=== PATIENT | female | born 1995 | race Caucasian/White ===

== ENCOUNTER 2018-03-22 22:06 | Emergency (ER) | payer OTHER ==
[~2018-03-22] VITALS: Ht 165.1 cm; Wt 83.9 kg
[~2018-03-22 22:06] MED LIST: AMOX500 PO; Amoxicillin875 MG PO; Bactrim Ds Tab1 EACH PO; CEPH500 PO; CODACE30 PO; CRUTCH4 USE; HYDACE5 PO; IBUP800 PO; Keflex500 MG PO; ONDA4ODT PO; PRED20 PO; PROM25 PO; TRAM50 PO; Tamiflu75 MG PO
[2018-03-22] MEDS ORDERED: CEPH500 PO (23:44)
[2018-03-23] MEDS ORDERED: Bactrim Ds Tab1 EACH PO (00:13)
[2018-03-23] MEDS ORDERED: Percocet 5-3251 EACH PO (00:13)
== END 2018-03-23 00:17 | disposition home or self-care (01) ==
LOC: ER 22:06
DX: L03.316 Cellulitis of umbilicus (principal)
CPT/HCPCS: 99283

== ENCOUNTER 2018-10-21 17:49 | Emergency (ER) | payer OTHER ==
[~2018-10-21] VITALS: Ht 165.1 cm; Wt 83.9 kg
[~2018-10-21 17:49] MED LIST changes: +Percocet 5-3251 EACH PO
== END 2018-10-21 19:30 | disposition home or self-care (01) ==
LOC: ER 17:49
DX: S00.03XA Contusion of scalp, initial encounter (principal); F17.210 Nicotine dependence, cigarettes, uncomplicated; W18.30XA Fall on same level, unspecified, initial encounter; Y92.000 Kitchen of unspecified non-institutional (private) residence as the place of occurrence of the external cause
CPT/HCPCS: 99282

== ENCOUNTER 2019-03-13 23:35 | Emergency (ER) | payer OTHER ==
[~2019-03-13] VITALS: Ht 165.1 cm; Wt 83.9 kg
[2019-03-14] MEDS ORDERED: Bactrim Ds Tab1 EACH PO (04:20)
== END 2019-03-14 04:55 | disposition home or self-care (01) ==
LOC: ER 23:35
DX: L02.416 Cutaneous abscess of left lower limb (principal); L03.116 Cellulitis of left lower limb; F17.210 Nicotine dependence, cigarettes, uncomplicated
CPT/HCPCS: 10061; 90471; 90714; 99283-25

== ENCOUNTER 2019-08-23 20:35 | Emergency (ER) | payer OTHER ==
[~2019-08-23] VITALS: Ht 165.1 cm; Wt 81.7 kg
[2019-08-23] MEDS ORDERED: HYDR1TAB94 PO (23:05)
[2019-08-23] MEDS ORDERED: IBU800 MG PO (23:05)
[2019-08-23] MEDS ORDERED: Monodox100 MG PO (23:05)
== END 2019-08-23 23:24 | disposition home or self-care (01) ==
LOC: ER 20:35
DX: L03.311 Cellulitis of abdominal wall (principal); F17.210 Nicotine dependence, cigarettes, uncomplicated
CPT/HCPCS: 74176; 99283-25; A9270

== ENCOUNTER 2022-11-19 19:38 | Emergency (ER) | payer OTHER ==
[~2022-11-19] VITALS: Ht 165.1 cm; Wt 81.7 kg
[~2022-11-19 19:38] MED LIST changes: +HYDR1TAB94 PO; +IBU800 MG PO; +IBUP600 PO; +Monodox100 MG PO; +Norco 5-325 Ta1 EACH PO; +Veetids 500500 MG PO
== END 2022-11-19 21:28 | disposition home or self-care (01) ==
LOC: ER 19:38
DX: S13.4XXA Sprain of ligaments of cervical spine, initial encounter (principal); S40.011A Contusion of right shoulder, initial encounter; F17.210 Nicotine dependence, cigarettes, uncomplicated; V89.2XXA Person injured in unspecified motor-vehicle accident, traffic, initial encounter
CPT/HCPCS: 73030

== ENCOUNTER 2023-05-01 09:43 | Emergency (ER) | payer OTHER ==
[~2023-05-01] VITALS: Ht 160 cm; Wt 68.0 kg
[2023-05-01 11:39] LABS: Source, Urine Clean Catch
[2023-05-01 11:42] LABS: Appearance, Urine Clear (Clear); Bilirubin, Urine Neg (Neg); Blood, Urine 2+ (Neg); Color, Urine Yellow (P-Yellow); Glucose Qualitative, Urine Neg (Neg); Ketones, Urine Neg (Neg); Leukocyte Esterase, Urine 2+ (Neg); Nitrite, Urine Pos (Neg); Protein, Urine 1+ (Neg); Specific Gravity, Urine 1.015 (1.003-1.022); Urobilinogen, Urine 2+ (Normal)
[2023-05-01 11:49] LABS: Mucus Mod (0-Heavy)
[2023-05-01 11:50] LABS: Amorphous Light (0-Heavy); Bacteria Few /hpf; Calcium Oxalate Crystals Mod /hpf; Squamous Epithelial Cells Few /hpf (Few)
[2023-05-01 12:30] VITALS: BP 124/77
[2023-05-01] MEDS ORDERED: SUBOXONE 8 MG-1 EACH SL (12:33)
== END 2023-05-01 12:54 | disposition home or self-care (01) ==
LOC: ER 09:43
PROVIDERS: Physician Assistant
DX: F11.93 Opioid use, unspecified with withdrawal (principal); F15.93 Other stimulant use, unspecified with withdrawal; F17.210 Nicotine dependence, cigarettes, uncomplicated
CPT/HCPCS: 81001; 87077; 87086; 87186; 99284; A9270

== ENCOUNTER 2023-06-04 11:49 | Emergency (ER) | payer OTHER ==
[~2023-06-04] VITALS: Ht 165.1 cm; Wt 72.6 kg
[~2023-06-04 11:49] MED LIST changes: +SUBOXONE 8 MG-1 EACH SL
[2023-06-04 12:09] VITALS: BP 148/86
[2023-06-04] MEDS ORDERED: IBUP800 PO (12:12)
[2023-06-04] MEDS ORDERED: Amoxicillin500 MG PO (12:12)
== END 2023-06-04 12:14 | disposition home or self-care (01) ==
LOC: ER 11:49
DX: K04.7 Periapical abscess without sinus (principal); Z79.899 Other long term (current) drug therapy; F17.210 Nicotine dependence, cigarettes, uncomplicated
CPT/HCPCS: 99282

== ENCOUNTER 2023-08-10 19:28 | Emergency (ER) | payer OTHER ==
[~2023-08-10] VITALS: Ht 165.1 cm; Wt 69.7 kg
[~2023-08-10 19:28] MED LIST changes: +Amoxicillin500 MG PO
[2023-08-10 20:14] LABS: Source, Urine Voided
[2023-08-10 20:18] LABS: BASOPHILS ABSOLUTE AUTO 0.06 K/mm3 (0.00-0.23); BASOPHILS PERCENT AUTO 0 % (0-2); EOSINOPHILS ABSOLUTE AUTO 0.25 K/mm3 (0.00-0.68); EOSINOPHILS PERCENT AUTO 2 % (0-6); Hematocrit 44.1 % (33.0-51.0); Hemoglobin 14.2 g/dL (11.5-16.0); IMMATURE GRAN ABSOLUTE AUTO 0.06 K/mm3 (0.00-0.10); IMMATURE GRAN PERCENT AUTO 0 % (0-1); LYMPHOCYTES ABSOLUTE AUTO 5.89 K/mm3 (0.84-5.20); LYMPHOCYTES PERCENT AUTO 37 % (21-46); MONOCYTES PERCENT AUTO 6 % (4-13); Mean Corpuscular HGB 30.5 pg (26.0-34.0); Mean Corpuscular HGB Conc 32.2 g/dL (31.5-36.5); Mean Corpuscular Volume 95 fL (80-100); Mean Platelet Volume 9.4 fL (9.1-12.4); NEUTROPHILS ABSOLUTE AUTO 8.66 K/mm3 (1.96-9.15); NEUTROPHILS PERCENT AUTO 54 % (41-73); Platelet Count 331 K/mm3 (150-400); RDW Coefficient Variation 12.7 % (11.7-14.2); RDW Standard Deviation 43.8 fL (35.1-46.3); Red Blood Cell Count 4.66 M/mm3 (3.80-5.20); White Blood Cell Count 15.92 K/mm3 (4.00-11.30)
[2023-08-10 20:22] LABS: Appearance, Urine Hazy (Clear); Bilirubin, Urine Neg (Neg); Blood, Urine 5+ (Neg); Color, Urine Yellow (P-Yellow); Glucose Qualitative, Urine Neg (Neg); Ketones, Urine 1+ (Neg); Leukocyte Esterase, Urine Neg (Neg); Nitrite, Urine Neg (Neg); Protein, Urine 2+ (Neg); Urobilinogen, Urine 1+ (Normal)
[2023-08-10 20:33] LABS: Amorphous Light (0-Heavy); Bacteria Few /hpf; Calcium Oxalate Crystals Many /hpf; Squamous Epithelial Cells Few /hpf (Few); White Blood Cells, Urine Not Seen /hpf (0-5)
[2023-08-10 20:35] LABS: Albumin, Blood 3.9 g/dL (3.4-5.0); Albumin/Globulin Ratio 1.1 (0.8-1.8); Bilirubin, Total 0.3 mg/dL (0.1-1.0); Bun/Creatinine Ratio 15.7 (12.0-20.0); Calcium, Blood 8.4 mg/dL (8.5-10.1); Creatinine, Blood 0.89 mg/dL (0.40-1.00); Globulin, Blood 3.5 g/dL (2.2-4.0); Potassium, Blood 3.1 mmol/L (3.5-5.5); Total Protein, Blood 7.4 g/dL (6.4-8.2)
[2023-08-10 21:19] VITALS: BP 133/76
== END 2023-08-10 21:20 | disposition home or self-care (01) ==
LOC: ER 19:28
PROVIDERS: Emergency Medicine
DX: F11.20 Opioid dependence, uncomplicated (principal); K06.8 Other specified disorders of gingiva and edentulous alveolar ridge; K02.9 Dental caries, unspecified; I10 Essential (primary) hypertension; F17.210 Nicotine dependence, cigarettes, uncomplicated
CPT/HCPCS: 80053; 81001; 84703; 85025; 99284

== ENCOUNTER 2024-03-06 22:31 | Emergency (ER) | payer OTHER ==
[~2024-03-06] VITALS: Ht 162.6 cm; Wt 56.7 kg
[~2024-03-06 22:31] MED LIST changes: +AMOCLA875 PO
[2024-03-06 22:37] VITALS: BP 141/99
[2024-03-06] MEDS ORDERED: Ibuprofen 600 MG Tab PO ONE (23:15)
== END 2024-03-06 23:24 | disposition home or self-care (01) ==
LOC: ER 22:31
DX: M25.522 Pain in left elbow (principal); Z79.899 Other long term (current) drug therapy; I10 Essential (primary) hypertension; F17.210 Nicotine dependence, cigarettes, uncomplicated
CPT/HCPCS: 99282; A9270

== ENCOUNTER 2024-05-01 22:04 | Emergency (ER) | payer OTHER ==
[~2024-05-01] VITALS: Ht 157.5 cm; Wt 63.5 kg
[2024-05-01] MEDS ORDERED: Ketorolac Tromethamine 30mg Vial IV ONE (22:15)
[2024-05-01] MEDS ORDERED: HYDROmorphone HCl/Pf 1MG SYR IV ONE ×2 (22:15→22:55)
[2024-05-01] MEDS ORDERED: FentaNYL Citrate 50 MCG/ML 2 ML Injection IV ONE (22:15)
[2024-05-01] MEDS ORDERED: Diphth,Pertuss(Acell),Tet Vac 0.5 ML VIAL IM ONE (22:25)
[2024-05-01] MEDS ORDERED: NS 1,000 ML IV SCH (22:25)
[2024-05-01] MEDS ORDERED: Nicotine 21 MG PATCH TOP ONE (23:00)
[2024-05-02 00:30] VITALS: BP 114/59
== END 2024-05-02 00:39 | disposition short-term general hospital (02) ==
LOC: ER 22:04
DX: T24.221A Burn of second degree of right knee, initial encounter (principal); T24.201A Burn of second degree of unspecified site of right lower limb, except ankle and foot, initial encounter; T25.212A Burn of second degree of left ankle, initial encounter; T25.211A Burn of second degree of right ankle, initial encounter; T24.212A Burn of second degree of left thigh, initial encounter; T24.211A Burn of second degree of right thigh, initial encounter; T31.11 Burns involving 10-19% of body surface with 10-19% third degree burns; X08.8XXA Exposure to other specified smoke, fire and flames, initial encounter; I10 Essential (primary) hypertension; F17.210 Nicotine dependence, cigarettes, uncomplicated
CPT/HCPCS: 90715; 96361; 96374; 96375; 96376; 99285-25; A9270; J1170; J1885; J7030

== ENCOUNTER 2024-07-28 08:41 | Emergency (ER) | payer OTHER ==
[~2024-07-28] VITALS: Ht 165.1 cm; Wt 65.8 kg
[2024-07-28 09:47] VITALS: BP 134/86
[2024-07-28] MEDS ORDERED: AMOCLA875 PO (09:48)
== END 2024-07-28 09:50 | disposition home or self-care (01) ==
LOC: ER 08:41
DX: K04.7 Periapical abscess without sinus (principal); F17.210 Nicotine dependence, cigarettes, uncomplicated
CPT/HCPCS: 99282

== ENCOUNTER 2024-10-09 00:27 | Emergency (ER) | payer OTHER ==
[~2024-10-09] VITALS: Ht 165.1 cm; Wt 63.5 kg
[2024-10-09 00:32] VITALS: BP 156/95
[2024-10-09] MEDS ORDERED: Acetaminophen 500 MG Tab PO ONE (01:05)
[2024-10-09] MEDS ORDERED: Ibuprofen 600 MG Tab PO ONE (01:05)
== END 2024-10-09 02:13 | disposition home or self-care (01) ==
LOC: ER 00:27
DX: M25.562 Pain in left knee (principal); F17.210 Nicotine dependence, cigarettes, uncomplicated; I10 Essential (primary) hypertension
CPT/HCPCS: 73560-LT; 99283-25; A9270